=== PATIENT | male | born 1990 | race Caucasian/White ===

== ENCOUNTER 2016-05-07 02:26 | Emergency (ER) | payer SELFPAY ==
[~2016-05-07] VITALS: Ht 188 cm; Wt 133.9 kg
[~2016-05-07 02:26] MED LIST: NAPR500 PO
[2016-05-07 02:55] VITALS: BP 150/106; PULSE 86; RESP 16; TEMP 99.1
[2016-05-07] MEDS ORDERED: VIST50CA PO (03:25)
[2016-05-07] MEDS ORDERED: BACT800T5 PO (03:25)
--- NOTE | 2016-05-07 03:26 | PD ---
HPI . Rash Chief Complaint: Skin Problem Time Seen by Provider: 03:04 Travel History International Travel<30 days: No Contact w/Intl Traveler<30days: No Traveled to known affect area: No History of Present Illness HPI Patient presents with a painful rash to his hands. He states that it has been present for 2 or 3 weeks. He states that the lesions will burst and drained pus. He states that he was seen at an outside facility yesterday and prescribed ibuprofen. He states that that is not helping his pain. He has not been having fevers or chills. PFSH Past Medical History Thyroid Disease: Yes Past Surgical History Appendectomy: Yes Social History Alcohol Use: No Tobacco Use: Yes (1/2 pack a day ) Substance Use: Yes (states stopped smoking about a week ago ) Allergies-Medications (Allergen,Severity, Reaction): Coded Allergies: Shellfish (Verified Allergy, Severe, hives, 05/07/16) Reported Meds & Prescriptions Reported Meds & Active Scripts Active Naprosyn (Naproxen) 500 Mg Tab 500 Mg PO BID PRN Review of Systems Except as stated in HPI: all other systems reviewed are Neg General / Constitutional: No: Fever, Chills Skin: Positive Rash, Positive Itching, Positive Lesions (painful) Physical Exam Narrative GENERAL: Healthy-appearing man in no acute distress SKIN: Warm and dry. He has numerous lesions all over his body. They are small , maculopapular lesions. Several lesions on his hands are excoriated. However , the surrounding skin is not red or hot. I don't feel any fluctuance. Do not see any purulent drainage. HEAD: Atraumatic. Normocephalic. EYES: Pupils equal and round. ENT: No nasal bleeding or discharge. Mucous membranes pink and moist. NECK: Trachea midline. CARDIOVASCULAR: Regular rate and rhythm. RESPIRATORY: No accessory muscle use. MUSCULOSKELETAL: No obvious deformities. No edema. NEUROLOGICAL: Awake and alert. No obvious cranial nerve deficits. Motor grossly within normal limits. Normal speech. PSYCHIATRIC: Appropriate mood and affect; insight and judgment normal. Data Data Last Documented VS Vital Signs Date Time Temp Pulse Resp B/P Pulse Ox O2 Delivery O2 Flow Rate FiO2 05/07/16 02:55 99.1 86 16 150/106 [facility] Medical Decision Making Medical Screen Exam Complete: Yes Emergency Medical Condition: Yes Differential Diagnosis Differential diagnosis includes but is not limited to scabies, MRSA, fleabites, other bug bites Narrative Course Patient presents for evaluation and treatment of painful, pruritic lesions on his hands. He is actually found to have lesions covering his entire body. I will treat him for possible MRSA with Bactrim. I will give him Atarax for the itching. I will instruct him to use [id number] medication for scabies. He has been instructed to follow-up with a manager highway. Diagnosis Primary Impression: Rash Additional Instructions: Use an [id number] scabies medication. See a manager highway if symptoms persist. Med/Other Pt SpecificInfo: Prescription(s) given Scripts Hydroxyzine Pamoate (Vistaril)50 Mg Cap50 Mg PO QID PRN (itching) #30 CAP Ref 0 Prov:Rosalinda Beckett MD 05/07/16 Sulfamethoxazole-Trimethoprim (Bactrim DS)800-160 Mg Tab1 Tab PO BID #20 TAB Ref 0 Prov:Rosalinda Beckett MD 05/07/16 Disposition: 01 DISCHARGE HOME Condition: Stable Rosalinda Beckett MD May 07, 2016 03:26
[2016-05-07] MEDS ORDERED: SULFAMETHOXAZOLE-TRIMETHOPRIM DS 800-160 MG TAB PO ONE (03:30)
== END 2016-05-07 03:45 | disposition home or self-care (01) ==
LOC: PHED 02:26
DX: R21 Rash and other nonspecific skin eruption (principal); F17.210 Nicotine dependence, cigarettes, uncomplicated
CPT/HCPCS: 99282